=== PATIENT | female | born 1940 | race Caucasian/White ===

== ENCOUNTER → 2017-11-19 | Outpatient (CLI) | payer OTHER, BC | LOC: RAD 11:02 | DX: R05 Cough (principal); Z87.09 Personal history of other diseases of the respiratory system ==

== ENCOUNTER → 2017-12-11 | Outpatient (CLI) | payer OTHER, BC | LOC: RAD 12:16 | DX: J10.1 Influenza due to other identified influenza virus with other respiratory manifestations (principal); R05 Cough; J84.10 Pulmonary fibrosis, unspecified ==